=== PATIENT | female | born 1970 | race Caucasian/White ===

== ENCOUNTER 2022-08-19 09:33 | Outpatient (CLI) | payer BC, SELFPAY ==
--- OUTSIDE RECORDS SUMMARY | 2022-08-19 07:49 | XMS_ITS | Encounter Summary ---
:1970 Author Organization [place] Address [address] [place] [address] Care Team Providers Name Role Phone Margaret Osman MD Primary Care Provider [phone] Reason for Referral Diagnostic Imaging Mammo (Routine) - Closed Specialty Diagnoses / Procedures Referred By Contact Refer red To Contact Diagnoses Visit for screening mammogram Lisa Ferrera, Alize MA Screen Bilateral w/Jamie RN RELIEF CHARGE AUDIOMETRIC TECHNICIAN [facility] [address] [place] [address] [address] [place] [address] Referral ID Status Reason Start Date Expiration Date Visits Requ ested Visits Authorized [id number] Closed 11/05/2020 11/05/2021 1 1 STERILIZER Reason for Visit Diagnostic Imaging Mammo (Routine) - Closed Specialty Diagnoses / Procedures Referred By Contact Refer red To Contact Diagnoses Visit for screening mammogram Lisa Ferrera Procedures MA Screen Bilateral w/Jamie RN RELIEF CHARGE AUDIOMETRIC TECHNICIAN [facility] [address] [address] [place] [address] Referral ID Status Reason Start Date Expiration Date Visits Requ ested Visits Authorized [id number] Closed 11/05/2020 11/05/2021 1 1 Encounter Details Date Type Department Care Team Description 11/14/2020 Hospital Encounter [facility] Lisa Ferrera sit for screening [facility] LYDIA Chiang mammogram [address] [facility] [place] [place] [facility] [address] [phone] [address] [place] [address] Social History Tobacco Use Types Packs/Day Years Used Date Never Assessed Sex Assigned at Date Recorded Not on file COVID-19 Exposure Response Date Recorded In the last month, have you been in contact with No / Unsure 11/14/2020 11:41 AM CAN STERILIZER someone who was confirmed or suspected to have Coronavirus / COVID-19? documented as of this encounter Plan of Treatment Not on filedocumented as of this encounter Procedures Procedure Name Priority Date/Time Associated Diagnosis Comme nts MA SCREENING Routine 11/14/2020 12:03 PM Visit for screening R esults for this BILATERAL W/ JAMIE CAN STERILIZER mammogram procedure are in the results section. documented in this encounter Results MA Screen Bilateral w/Jamie (11/14/2020 12:03 PM CAN STERILIZER) Anatomical Region Laterality Modality Breast Bilateral Mammography Specimen (Source) Anatomical Location Collection Method / Collectio n Time Received Time / Laterality Volume Impressions 11/14/2020 2:29 PM CAN STERILIZER IMPRESSION: BI-RADS CATEGORY: 1 - ??NEGATIVE. RECOMMENDED FOLLOW-UP: Annual Mammograph y. The patient will be notified of the resu lts. ALY NEFF MD Narrative 11/14/2020 2:29 PM CAN STERILIZER Examination: Bilateral digital screening mammography with computer aided detection including digital breast tomosynthesis, 11/14/2020 12:03 PM. Comparison: 09/14/2019, 04/21/2014 History: No current breast concerns. Pat ernal aunt with breast cancer. BREAST DENSITY: Heterogeneously dense. COMMENTS: ??No suspicious finding. Procedure Note Aly Neff MD - 11/14/2020 Examination: Bilateral digital screening mammography with computer aided detection including digital breast tomosynthesis, 11/14/2020 12:03 PM. Comparison: 09/14/2019, 04/21/2014 History: No current breast concerns. Pat ernal aunt with breast cancer. BREAST DENSITY: Heterogeneously dense. COMMENTS: No suspicious finding. IMPRESSION: BI-RADS CATEGORY: 1 - NEGATI VE. RECOMMENDED FOLLOW-UP: Annual Mammograph y. The patient will be notified of the resu lts. ALY NEFF MD Lisa Ferrera RN RELIEF CHARGE AUDIOMETRIC TECHNICIAN IMG MAMMOGRAPHY ORDERAB LES documented in this encounter Visit Diagnoses Diagnosis Visit for screening mammogram Other screening mammogram documented in this encounter Care Teams Aboriginal Community Council Member Relationship Specialty Start Date End Date Margaret Osman MD PCP - General Family Practice 08/19/[address] [address] documented as of this encounter
--- OUTSIDE RECORDS SUMMARY | 2022-08-19 07:49 | XMS_ITS | Encounter Summary ---
:1970 Author Organization [place] Address [address] [place] [address] Care Team Providers Name Role Phone Margaret Osman MD Primary Care Provider [phone] Encounter Details Date Type Department Care Team Description 11/14/2020 Travel Social History Tobacco Use Types Packs/Day Years Used Date Never Assessed Sex Assigned at Date Recorded Not on file COVID-19 Exposure Response Date Recorded In the last month, have you been in contact with No / Unsure 11/14/2020 11:41 AM NUCLEAR PLANT TECHNICAL ADVISOR someone who was confirmed or suspected to have Coronavirus / COVID-19? documented as of this encounter Plan of Treatment Not on filedocumented as of this encounter Visit Diagnoses Not on filedocumented in this encounter Care Teams Student Success Counselor Relationship Specialty Start Date End Date Margaret Osman MD PCP - General Family Practice 08/19/[address] [address] documented as of this encounter
--- OUTSIDE RECORDS SUMMARY | 2022-08-19 07:49 | XMS_ITS | Encounter Summary ---
:1970 Author Organization [place] Address [address] [place] [address] Care Team Providers Name Role Phone Margaret Osman MD Primary Care Provider [phone] Encounter Details Date Type Department Care Team Description 11/19/2021 Travel Social History Tobacco Use Types Packs/Day Years Used Date Never Assessed Sex Assigned at Date Recorded Not on file COVID-19 Exposure Response Date Recorded In the last month, have you been in contact with No / Unsure 11/19/2021 8:06 AM DISEASE CONTROL INSPECTOR someone who was confirmed or suspected to have Coronavirus / COVID-19? documented as of this encounter Plan of Treatment Not on filedocumented as of this encounter Visit Diagnoses Not on filedocumented in this encounter Care Teams Electrical Maintenance Supervisor Relationship Specialty Start Date End Date Margaret Osman MD PCP - General Family Practice 08/19/[address] [address] documented as of this encounter
--- OUTSIDE RECORDS SUMMARY | 2022-08-19 07:49 | XMS_ITS | Clinical Summary ---
:1970 Author Organization [place] Address [address] [place] [address] Care Team Providers Name Role Phone Margaret Osman MD Primary Care Provider [phone] Social History Tobacco Use Types Packs/Day Years Used Date Never Assessed Sex Assigned at Date Recorded Not on file Plan of Treatment Health Maintenance Due Date Last Done Comments ADVANCE CARE PLANNING 1970 ANNUAL REVIEW OF HM ORDERS 1970 CT COLONOGRAPHY 1970 FIT-DNA (Cologuard) 1970 FIT 1970 FLEX SIG 1970 HIV SCREENING 1985 HEPATITIS C SCREENING 1988 PAP 1991 LIPID 2015 PHQ-2 (once per calendar 11/16/2021 year) COVID-19 Vaccine (4 - 12/03/2021 10/08/2021, 03/19/2021, Booster for Pfizer series) 02/26/2021 INFLUENZA VACCINE (#1) 2022 08/29/2020, 08/31/2019, 08/05/2017, Additional history exists MAMMO SCREENING 11/19/2022 11/19/2021, 11/14/2020, 09/14/2019, Additional history exists PREVENTIVE CARE VISIT 02/18/2023 02/18/2022, 05/16/2021 DTAP/TDAP/TD IMMUNIZATION 02/22/2029 02/22/2019 (2 - Td or Tdap) COLONOSCOPY 08/01/2031 08/01/2021, 08/01/2021 COLORECTAL CANCER SCREENING 08/01/2031 ZOSTER IMMUNIZATION Completed 08/22/2021, 05/16/2021 HEPATITIS B IMMUNIZATION Aged Out No long er eligible based on patient 's age to complete this topic IPV IMMUNIZATION Aged Out No longer eligi ble based on patient 's age to complete this topic MENINGITIS IMMUNIZATION Aged Out No longe r eligible based on patient 's age to complete this topic Pneumococcal Vaccine: Aged Out No longer eligible Pediatrics (0 to 5 Years) based on patient's age and At-Risk Patients (6 to to co mplete this topic 64 Years) Insurance Payer Benefit Plan / Subscriber ID Effective Dates Phone Addre ss Type Group BCBS BCBS OUT OF [id number] 2016-Present [phone] [address] [address] [place] [address] [phone] (Work) Care Teams Rubber Stamp Assembler Relationship Specialty Start Date End Date Margaret Osman MD PCP - General Family Practice 08/19/[address] [address]
--- OUTSIDE RECORDS SUMMARY | 2022-08-19 07:50 | XMS_ITS | Encounter Summary ---
:1970 Author Organization [place] Address [address] [place] [address] Care Team Providers Name Role Phone Margaret Osman MD Primary Care Provider [phone] Reason for Visit (Routine) - Closed Specialty Diagnoses / Procedures Referred By Contact Refer red To Contact Radiology / Radiology. Diagnoses Previous images at [facility] Procedures MA SCREENING BILATERAL W/ JAMIE [address], [address] [place] [address] Phone: Fax: Referral ID Status Reason Start Date Expiration Date Visits Requ ested Visits Authorized [id number] Closed 08/26/2017 08/26/2018 1 1 Encounter Details Date Type Department Care Team Description 08/28/2017 [facility] MD [facility] mammogram Center [facility] [address], [address] [place] [address] [id number] Social History Tobacco Use Types Packs/Day Years Used Date Never Assessed Sex Assigned at Date Recorded Not on file documented as of this encounter Plan of Treatment Not on filedocumented as of this encounter Procedures Procedure Name Priority Date/Time Associated Diagnosis Comme nts MA SCREENING Routine 08/28/2017 12:47 PM Visit for screening R esults for this BILATERAL W/ JAMIE CDT mammogram procedure are in the results section. documented in this encounter Results MA Screen Bilateral w/Jamie (08/28/2017 12:47 PM CDT) Anatomical Region Laterality Modality Breast Bilateral Mammography Specimen (Source) Anatomical Location Collection Method / Collectio n Time Received Time / Laterality Volume Impressions 08/28/2017 1:39 PM CDT IMPRESSION: BI-RADS CATEGORY: 1 - ??Negative RECOMMENDED FOLLOW-UP: Annual Mammograph y. Exam results letter mailed to patient. MAURICIO KENNEDY MD Narrative 08/28/2017 1:39 PM CDT SCREENING MAMMOGRAM, BILATERAL, DIGITAL w/CAD AND TOMOSYNTHESIS - 08/28/2017 12:47 PM BREAST SYMPTOMS: No current breast compl aints. COMPARISON: ??08/26/16, 03/14/13. BREAST DENSITY: Heterogeneously dense. COMMENTS: No findings of suspicion for m alignancy. Procedure Note Mauricio Kennedy MD - 08/28/2017For matting of this note might be different from the original. SCREENING MAMMOGRAM, BILATERAL, DIGITAL w/CAD AND TOMOSYNTHESIS - 08/28/2017 12:47 PM BREAST SYMPTOMS: No current breast compl aints. COMPARISON: 08/26/16, 03/14/13. BREAST DENSITY: Heterogeneously dense. COMMENTS: No findings of suspicion for m alignancy. IMPRESSION: BI-RADS CATEGORY: 1 - Negati ve RECOMMENDED FOLLOW-UP: Annual Mammograph y. Exam results letter mailed to patient. MAURICIO KENNEDY MD Lisa Ferrera RN IMG MAMMOGRAPHY ORDERABLES documented in this encounter Visit Diagnoses Diagnosis Visit for screening mammogram Other screening mammogram documented in this encounter Care Teams Housekeeper And Laundry Assistant Relationship Specialty Start Date End Date Margaret Osman MD PCP - General Family Practice 08/19/[address] [address] documented as of this encounter
--- OUTSIDE RECORDS SUMMARY | 2022-08-19 07:50 | XMS_ITS | Encounter Summary ---
:1970 Author Organization [place] Address [address] [place] [address] Care Team Providers Name Role Phone Unavailable Primary Care Provider Unavailable Reason for Visit (Routine) - Closed Specialty Diagnoses / Procedures Referred By Contact Refer red To Contact Radiology Diagnoses SCREENING BILATERAL-DIGITAL Procedure Notes: Routine Breast Center Procedures RADIOLOGY [address], [address] [place], [place] [address] Phone: Fax: Referral ID Status Reason Start Date Expiration Date Visits Requ ested Visits Authorized [id number] Closed 03/11/2013 03/11/2014 1 1 Encounter Details Date Type Department Care Team Description 03/14/2013 Hospital Encounter [facility] Alexandra Johns MD [facility] [address] [place] [address], [place] [address] [address] [place] [address] Social History Tobacco Use Types Packs/Day Years Used Date Never Assessed Sex Assigned at Date Recorded Not on file documented as of this encounter Plan of Treatment Not on filedocumented as of this encounter Visit Diagnoses Not on filedocumented in this encounter
--- OUTSIDE RECORDS SUMMARY | 2022-08-19 07:50 | XMS_ITS | Encounter Summary ---
:1970 Author Organization [place] Address [address] [place] [address] Care Team Providers Name Role Phone Unavailable Primary Care Provider Unavailable Encounter Details Date Type Department Care Team Description 11/14/2009 Results Only [facility] Nydia Weaver MD Hospital Results [facility] [address] [place] [address] (Wo rk) Social History Tobacco Use Types Packs/Day Years Used Date Never Assessed Sex Assigned at Date Recorded Not on file documented as of this encounter Plan of Treatment Not on filedocumented as of this encounter Procedures Procedure Name Priority Date/Time Associated Diagnosis Comme nts HC MAMMO SCREEN Routine 11/14/2009 8:06 AM Result s for this BILATATERAL, INCL WORKERS COMPENSATION LEGAL SECRETARY procedure are in CAD WHEN PERF the results section. documented in this encounter Results SCREENING MAMMOGRAPHY DIGITAL (BILAT) (11/14/2009 8:06 AM WORKERS COMPENSATION LEGAL SECRETARY) Specimen (Source) Anatomical Collection Method Collection Time Re ceived Time Location / / Volume Laterality 11/14/2009 8:06 AM WORKERS COMPENSATION LEGAL SECRETARY Impressions RADIOLOGY RESULTS - 11/15/2009 9:[address] SCREENING MAMMOGRAM BILATERAL, DIGITAL w /CAD - November 14, 2009 BREAST SYMPTOMS: No current breast compl aints. COMPARISON: Routine. Baseline. ?? PARENCHYMAL PATTERN: Scattered fibroglan dular elements. COMMENTS: No findings of suspicion for m alignancy. IMPRESSION: BI-RADS 1, NEGATIVE. RECOMMENDATION: Annual screening mammogr aphy. Nydia Weaver MD SPECIAL IMAGING STUDIES Performing Organization Address City/State/ZIP Code Phon e Number RADIOLOGY RESULTS documented in this encounter Visit Diagnoses Not on filedocumented in this encounter
--- OUTSIDE RECORDS SUMMARY | 2022-08-19 07:50 | XMS_ITS | Encounter Summary ---
:1970 Author Organization [place] Address [address] [place] [address] Care Team Providers Name Role Phone [facility] Primary Care Provider [phone] Reason for Visit (Routine) - Closed Specialty Diagnoses / Procedures Referred By Contact Refer red To Contact Radiology / Radiology. Diagnoses sb pt [facility] Procedures MA SCREENING DIGITAL BILATERAL [address], [address] [place] [address] Phone: Fax: Referral ID Status Reason Start Date Expiration Date Visits Requ ested Visits Authorized [id number] Closed 08/21/2016 08/21/2017 1 1 Encounter Details Date Type Department Care Team Description 08/26/2016 Hospital Encounter [facility] Nydia Weaver for screening Dwight Sanchez MD mammogram Center [facility] [address] [address] [place] [address] Social History Tobacco Use Types Packs/Day Years Used Date Never Assessed Sex Assigned at Date Recorded Not on file documented as of this encounter Plan of Treatment Not on filedocumented as of this encounter Procedures Procedure Name Priority Date/Time Associated Diagnosis Comme nts MA SCREENING Routine 08/26/2016 3:23 PM Visit for screening Re sults for this DIGITAL BILATERAL CDT mammogram procedure are in the results section. documented in this encounter Results MA Screening Digital Bilateral (08/26/2016 3:23 PM CDT) Anatomical Region Laterality Modality Breast Bilateral Mammography Specimen (Source) Anatomical Location Collection Method / Collectio n Time Received Time / Laterality Volume Impressions 08/26/2016 3:50 PM CDT IMPRESSION: BI-RADS CATEGORY: 1 - ??NEGATIVE. RECOMMENDED FOLLOW-UP: Annual Mammograph y Exam results letter mailed to patient. DILLAN AYALA MD Narrative 08/26/2016 3:50 PM CDT SCREENING MAMMOGRAM, BILATERAL, DIGITAL w/CAD - 08/26/2016 3:23 PM. BREAST SYMPTOMS: No current breast compl aints. COMPARISON: ??07/24/2015, 11/18/2010. BREAST DENSITY: Heterogeneously dense. COMMENTS: No findings of suspicion for m alignancy. Procedure Note Dillan Ayala MD - 6 SCREENING MAMMOGRAM, BILATERAL, DIGITAL w/CAD - 08/26/2016 3:23 PM. BREAST SYMPTOMS: No current breast compl aints. COMPARISON: 07/24/2015, 11/18/2010. BREAST DENSITY: Heterogeneously dense. COMMENTS: No findings of suspicion for m alignancy. IMPRESSION: BI-RADS CATEGORY: 1 - NEGATI VE. RECOMMENDED FOLLOW-UP: Annual Mammograph y Exam results letter mailed to patient. DILLAN AYALA MD Nydia Weaver MD IMG MAMMOGRAPHY ORDERABLES documented in this encounter Visit Diagnoses Diagnosis Visit for screening mammogram Other screening mammogram documented in this encounter Care Teams Crocheter Relationship Specialty Start Date End Date [facility], [facility] PCP - General 07/06/15 08/18/[address] [place] [address] documented as of this encounter
--- OUTSIDE RECORDS SUMMARY | 2022-08-19 07:50 | XMS_ITS | Encounter Summary ---
:1970 Author Organization [place] Address [address] [place] [address] Care Team Providers Name Role Phone Margaret Osman MD Primary Care Provider [phone] Reason for Referral Diagnostic Imaging Ultrasound - Closed Specialty Diagnoses / Procedures Referred By Contact Refer red To Contact Radiology. Diagnoses Abnormal mammogram Lisa Ferrera, Rh Ultrasound Breast Procedures US Breast Right CORE DRILLER HELPER NUCLEAR POWER REACTOR OPERATOR [address], [facility] [address] [place] [address] [place] [address] Referral ID Status Reason Start Date Expiration Date Visits Requ ested Visits Authorized [id number] Closed 09/01/2018 09/01/2019 1 1 Electronically signed by Lisa Ferrera CORE DRILLER HELPER NUCLEAR POWER REACTOR OPERATOR at 09/06/2018 8:16 AM CDT Reason for Visit Diagnostic Imaging Ultrasound - Closed Specialty Diagnoses / Procedures Referred By Contact Refer red To Contact Radiology. Diagnoses Abnormal mammogram Lisa Ferrera, Rh Ultrasound Breast Procedures US Breast Right CORE DRILLER HELPER NUCLEAR POWER REACTOR OPERATOR [address], [facility] [address] [place] [address] [place] [address] Referral ID Status Reason Start Date Expiration Date Visits Requ ested Visits Authorized [id number] Closed 09/01/2018 09/01/2019 1 1 Encounter Details Date Type Department Care Team Description 09/06/2018 Hospital Encounter [facility] Iban Lisa normal mammogram [facility] LYDIA Chiang [address] [facility] [place] [facility] [address] [phone] [address] [place] [address] Social History Tobacco Use Types Packs/Day Years Used Date Never Assessed Sex Assigned at Date Recorded Not on file documented as of this encounter Plan of Treatment Not on filedocumented as of this encounter Procedures Procedure Name Priority Date/Time Associated Diagnosis Comme nts US BREAST RIGHT Routine 09/06/2018 8:58 AM Abnormal mammogram Results for this LIMITED 1-3 CDT procedure are i n QUADRANTS the results section. documented in this encounter Results US Breast Right (09/06/2018 8:58 AM CDT) Anatomical Region Laterality Modality Breast Right Ultrasound Specimen (Source) Anatomical Location Collection Method / Collectio n Time Received Time / Laterality Volume Impressions 09/06/2018 8:59 AM CDT IMPRESSION: BI-RADS CATEGORY: 2 - Benign Finding(s). RECOMMENDED FOLLOW-UP: Annual Mammograph y. The patient was given the results of the examination. ALY NEFF MD Narrative 09/06/2018 8:59 AM CDT Examination: Right breast digital diagnostic mammography and digital breast tomosynthesis with computer aided detection, and focused ultrasound of the RIGHT breast, 09/06/20 18. Comparison: 08/31/2018, 08/28/2017, 08/16 and 07/24/2015. History: Screening call back for density in the RIGHT upper outer breast. BREAST DENSITY: Heterogeneously dense Findings: Digital breast tomosynthesis a nd focused ultrasound of the RIGHT upper outer quadrant were used to further evaluate density. Scattered benign cysts are seen. No conc erning findings. Lisa Ferrera APRN NUCLEAR POWER REACTOR OPERATOR IMG US ORDERABLES documented in this encounter Visit Diagnoses Diagnosis Abnormal mammogram Abnormal mammogram, unspecified documented in this encounter Care Teams Contract Coordinator Relationship Specialty Start Date End Date Margaret Osman MD PCP - General Family Practice 08/19/[address] [address] documented as of this encounter
--- OUTSIDE RECORDS SUMMARY | 2022-08-19 07:50 | XMS_ITS | Encounter Summary ---
:1970 Author Organization [place] Address [address] [place] [address] Care Team Providers Name Role Phone Clinic, [facility] Primary Care Provider [phone] Reason for Visit (Routine) - Closed Specialty Diagnoses / Procedures Referred By Contact Refer red To Contact Radiology / Radiology. Diagnoses [facility] 04-21-2014 na, ni, sb pt Rh Breast Center Procedures RI SCREENING DIGITAL BILATERAL [address] [facility], [address] [place] [address] Phone: Fax: Referral ID Status Reason Start Date Expiration Date Visits Requ ested Visits Authorized [id number] Closed 07/05/2015 07/04/2016 1 1 Encounter Details Date Type Department Care Team Description 07/24/2015 Hospital Encounter [facility] Nydia Weaver ther screening Dwight Sanchez MD mammogram Center [facility] OBGYN [address] [facility], [address] [phone] [place], [place] [address] Social History Tobacco Use Types Packs/Day Years Used Date Never Assessed Sex Assigned at Date Recorded Not on file documented as of this encounter Plan of Treatment Not on filedocumented as of this encounter Procedures Procedure Name Priority Date/Time Associated Diagnosis Comme nts MA SCREENING Routine 07/24/2015 11:19 AM Other screening Resul ts for this DIGITAL BILATERAL CDT mammogram procedure are in the results section. documented in this encounter Results MA Screening Digital Bilateral (07/24/2015 11:19 AM CDT) Anatomical Region Laterality Modality Breast Bilateral Mammography Specimen (Source) Anatomical Location Collection Method / Collectio n Time Received Time / Laterality Volume Impressions 07/24/2015 3:59 PM CDT IMPRESSION: BI-RADS CATEGORY: 1 - ??NEGATIVE. RECOMMENDED FOLLOW-UP: Annual Mammograph y Exam results letter mailed to patient. DILLAN AYALA MD Narrative 07/24/2015 3:59 PM CDT SCREENING MAMMOGRAM, BILATERAL, DIGITAL w/CAD - 07/24/2015 11:19 AM. BREAST SYMPTOMS: No current breast compl aints. COMPARISON: ??04/21/2014, 11/18/2010. BREAST DENSITY: Heterogeneously dense. COMMENTS: No findings of suspicion for m alignancy. ? Procedure Note Dillan Ayala MD - 5 SCREENING MAMMOGRAM, BILATERAL, DIGITAL w/CAD - 07/24/2015 11:19 AM. BREAST SYMPTOMS: No current breast compl aints. COMPARISON: 04/21/2014, 11/18/2010. BREAST DENSITY: Heterogeneously dense. COMMENTS: No findings of suspicion for m alignancy. IMPRESSION IMPRESSION: BI-RADS CATEGORY: 1 - NEGATI VE. RECOMMENDED FOLLOW-UP: Annual Mammograph y Exam results letter mailed to patient. DILLAN AYALA MD Nydia Weaver MD IMG MAMMOGRAPHY ORDERABLES documented in this encounter Visit Diagnoses Diagnosis Other screening mammogram documented in this encounter Care Teams Statistical Machine Mechanic Relationship Specialty Start Date End Date [facility], [facility] PCP - General 07/06/15 08/18/[address] [place] [address] documented as of this encounter
--- OUTSIDE RECORDS SUMMARY | 2022-08-19 07:50 | XMS_ITS | Encounter Summary ---
:1970 Author Organization [place] Address [address] [place] [address] Care Team Providers Name Role Phone Unavailable Primary Care Provider Unavailable Reason for Visit (Routine) - Closed Specialty Diagnoses / Procedures Referred By Contact Refer red To Contact Radiology / Radiology. Diagnoses [facility] Procedures MA SCREENING DIGITAL BILATERAL [address], [address] [place] [address] Phone: Fax: Referral ID Status Reason Start Date Expiration Date Visits Requ ested Visits Authorized [id number] Closed 04/12/2014 10/09/2014 1 1 Encounter Details Date Type Department Care Team Description 04/21/2014 Hospital Encounter [facility] Lsia Ferrera [facility] Breast [place] LYDIA Chiang ACOUSTIC ENGINEER [address] [facility] [address] [facility] [place], [place] [address] [address] [facility] [address] [place], [place] [address] Social History Tobacco Use Types Packs/Day Years Used Date Never Assessed Sex Assigned at Date Recorded Not on file documented as of this encounter Plan of Treatment Not on filedocumented as of this encounter Procedures Procedure Name Priority Date/Time Associated Diagnosis Comme nts MA SCREENING Routine 04/21/2014 12:17 PM Breast screening Resu lts for this DIGITAL BILATERAL CDT procedure are in the results section. documented in this encounter Results MA Screening Digital Bilateral (04/21/2014 12:17 PM CDT) Anatomical Region Laterality Modality Breast Bilateral Mammography Specimen (Source) Anatomical Location Collection Method / Collectio n Time Received Time / Laterality Volume Impressions 04/21/2014 2:19 PM CDT IMPRESSION: BI-RADS CATEGORY: 1 - ??NEGATIVE RECOMMENDED FOLLOW-UP: Annual Mammograph y KAIT WILKINSON MD Narrative 04/21/2014 2:19 PM CDT SCREENING MAMMOGRAM, BILATERAL, DIGITAL w/CAD, 04/21/2014 2:19 PM BREAST DENSITY: Heterogeneously dense ?? CLINICAL INFORMATION: ??Routine,Breast s creening, unspecified, 03/14/2013, 11/14/2009 FINDINGS: Negative. Screening exam in on e year recommended. Procedure Note Kait Wilkinson MD - 04/21/2014Formatt ing of this note might be different from the original. SCREENING MAMMOGRAM, BILATERAL, DIGITAL w/CAD, 04/21/2014 2:19 PM BREAST DENSITY: Heterogeneously dense CLINICAL INFORMATION: Routine,Breast scr eening, unspecified, 03/14/2013, 11/14/2009 FINDINGS: Negative. Screening exam in on e year recommended. IMPRESSION IMPRESSION: BI-RADS CATEGORY: 1 - NEGATI VE RECOMMENDED FOLLOW-UP: Annual Mammograph y KAIT WILKINSON MD Lisa Ferrera APRN ACOUSTIC ENGINEER IMG MAMMOGRAPHY ORDERAB LES documented in this encounter Visit Diagnoses Diagnosis Breast screening Breast screening, unspecified documented in this encounter
--- OUTSIDE RECORDS SUMMARY | 2022-08-19 07:50 | XMS_ITS | Encounter Summary ---
:1970 Author Organization [place] Address [address] [place] [address] Care Team Providers Name Role Phone Margaret Osman MD Primary Care Provider [phone] Reason for Referral Diagnostic Imaging Mammo - Closed Specialty Diagnoses / Procedures Referred By Contact Refer red To Contact Radiology. Diagnoses Breast cancer screening Lsia Ferrera, Breast Center Procedures MA Screening Digital Bilateral MA Screen Bilateral w/Manuel GANG PLANK WORKMAN OFFICE MACHINE SERVICER [address] [facility] [place] [facility] [address] [place] [address] [address] [place], [place] [phone] Fax: Referral ID Status Reason Start Date Expiration Date Visits Requ ested Visits Authorized [id number] Closed 08/20/2018 08/20/2019 1 1 Reason for Visit Diagnostic Imaging Mammo - Closed Specialty Diagnoses / Procedures Referred By Contact Refer red To Contact Radiology. Diagnoses Breast cancer screening Lisa Ferrera, Breast Center Procedures MA Screening Digital Bilateral MA Screen Bilateral w/Manuel GANG PLANK WORKMAN OFFICE MACHINE SERVICER [address] [facility] [place] [address] [address] [place], [place] [phone] Fax: Referral ID Status Reason Start Date Expiration Date Visits Requ ested Visits Authorized [id number] Closed 08/20/2018 08/20/2019 1 1 Encounter Details Date Type Department Care Team Description 08/31/2018 [facility] Breast [place] LYDIA Chiang screening [address] [facility] [place], [place] [facility] [address] [phone] [address] [place], [place] [phone] Social History Tobacco Use Types Packs/Day Years Used Date Never Assessed Sex Assigned at Date Recorded Not on file documented as of this encounter Plan of Treatment Not on filedocumented as of this encounter Procedures Procedure Name Priority Date/Time Associated Diagnosis Comme nts MA SCREENING Routine 08/31/2018 3:17 PM Breast cancer Results for this DIGITAL BILATERAL CDT screening procedure are in the results section. documented in this encounter Results MA Screening Digital Bilateral (08/31/2018 3:17 PM CDT) Anatomical Region Laterality Modality Breast Bilateral Mammography Specimen (Source) Anatomical Location Collection Method / Collectio n Time Received Time / Laterality Volume Impressions 08/31/2018 3:36 PM CDT IMPRESSION: BI-RADS CATEGORY: 0 - Incomplete - Need Additional Imaging Evaluation and/or Prior Mammograms for C omparison. RECOMMENDED FOLLOW-UP: Diagnostic and ul trasound. KAIT DE MD Narrative 08/31/2018 3:36 PM CDT SCREENING MAMMOGRAM, BILATERAL, DIGITAL w/CAD, 08/31/2018 3:35 PM BREAST DENSITY: Heterogeneously dense. CLINICAL INFORMATION: Breast screening. ??; Breast cancer screening, 08/28/2017, 11/21/2011 FINDINGS: Density right upper outer [address] Lisa Ferrera GANG PLANK WORKMAN OFFICE MACHINE SERVICER IMG MAMMOGRAPHY ORDERAB LES documented in this encounter Visit Diagnoses Diagnosis Breast cancer screening Breast screening, unspecified documented in this encounter Care Teams Fork Assembler Relationship Specialty Start Date End Date Margaret Osman MD PCP - General Family Practice 08/19/[address] [address] documented as of this encounter
--- OUTSIDE RECORDS SUMMARY | 2022-08-19 07:50 | XMS_ITS | Encounter Summary ---
:1970 Author Organization [place] Address [address] [place] [address] Care Team Providers Name Role Phone Unavailable Primary Care Provider Unavailable Encounter Details Date Type Department Care Team Description 11/18/2010 Results Only [facility] Thaddeus Calr MD Hospital Results [facility] OBGYN CONSULTS [address] [place], [place] [phone] (Wo rk) Social History Tobacco Use Types Packs/Day Years Used Date Never Assessed Sex Assigned at Date Recorded Not on file documented as of this encounter Plan of Treatment Not on filedocumented as of this encounter Procedures Procedure Name Priority Date/Time Associated Diagnosis Comme nts MA SCREENING Routine 11/18/2010 8:54 AM Results f or this DIGITAL BILATERAL SCHEDULING ASSISTANT procedure are in the results section. documented in this encounter Results Mammo Screening digital (bilat) (11/18/2010 8:54 AM SCHEDULING ASSISTANT) Specimen (Source) Anatomical Collection Method Collection Time Re ceived Time Location / / Volume Laterality 11/18/2010 8:54 AM SCHEDULING ASSISTANT Impressions RADIOLOGY RESULTS - 11/18/2010 9:[address] SCREENING MAMMOGRAM, BILATERAL, DIGITAL w/CAD BREAST SYMPTOMS/COMPARISON: 11/14/2009 BREAST PARENCHYMAL PATTERN: Heterogeneou sly dense FINDINGS: Negative. IMPRESSION: BI-RADS 1, NEGATIVE. Thaddeus Carl MD IMG MAMMOGRAPHY ORDERABLES Performing Organization Address City/State/ZIP Code Phon e Number RADIOLOGY RESULTS documented in this encounter Visit Diagnoses Not on filedocumented in this encounter
--- OUTSIDE RECORDS SUMMARY | 2022-08-19 07:50 | XMS_ITS ---
:1970 Author Care Team Providers Name Role Phone Rebecca Barone Primary Care Provider Unavailable Allergies Code Code System Name Reaction Severity Status Onset Penicillins ? ? Active ? Medications Name Status Start Date Stop Date ? ? clindamycin 1 % topical gel Active ? Not available APPLY TO AFFECTED AREA TWICE A DAY Mirena 20 mcg/24 hours (8 yrs) 52 mg intrauterine device Active ? Not available Take by intrauterine route. spironolactone 100 mg tablet Active ? Not available TAKE 1 TABLET BY MOUTH EVERY DAY Problems None recorded. Procedures Date Name Performed by ? ? Insert Intrauterine Device Information n ot available Notes: *Notes: *08-09-12 Mirena * removal and reinsertion ? Laparoscopic Myomectomy Information not available Notes: *Surgery Date: 1 *Notes: hysteroscopic resection of 2cm anterior myoma ? Ligation of Bilateral Fallopian Tubes In formation not available Notes: *Surgery Date: 07/2003 *Notes: Dr Roche ? Loop Electrosurgical Excision Procedure Information not available Notes: *Surgery Date: 11/06/97 *Notes: Negative ? Tooth Extraction Information not elías wayne Notes: *Surgery Date: 10/2007 Results Lab Results Date Name Specimen Result Interpretation Description Value Range Status Address ? ? Hemoglobin ? Fingerstick 14.3 12.0-15.0 ? [id number]: (Hb), Hemoglobin g/dL g/dL [address] [facility] [address], [address] [place] [address] Blood Past Encounters 02/28/2022 Fibrocystic [facility] [address] [facility] [address], [address] [place] [phone], Ph. 02/18/2022 Gynecologic Examination [facility] [address] [facility] [address], [address], [place] [address], Ph. Social History Tobacco Smoking Status Former Smoker (1/2 pack per Notes: Age Start/Stop: day) Vaccine List None recorded. Plan of Care Reminders Provider Appointments None recorded. ? ? Lab None recorded. ? ? Referral None recorded. ? ? Procedures None recorded. ? ? Surgeries None recorded. ? ? Imaging None recorded. ? ? Vitals 02/28/2022 03:30PM G_OFFICE VISIT Height Weight BMI Blood Pressure 5 ft 9.5 in 118/76 mm[Hg] 02/18/2022 03:45PM G_ANNUAL EXAM Height Weight BMI Blood Pressure 5 ft 9.5 in 211.4 lbs 30.8 kg/m2 118/78 mm[Hg] 01/17/2021 03:45PM G_ANNUAL EXAM Height Weight BMI Blood Pressure 5 ft 9.5 in 205.8 lbs 30 kg/m2 114/72 mm[Hg] 11/04/2019 Height Weight BMI Blood Pressure 5 ft 9.96 in 211 lbs 30.28 kg/m2 108/76 mm[Hg] 09/29/2018 Height Weight BMI Blood Pressure 5 ft 9.96 in 194 lbs 27.84 kg/m2 120/68 mm[Hg] 09/25/2017 Height Weight BMI Blood Pressure 5 ft 9.96 in 192.5 lbs 27.62 kg/m2 110/70 mm[Hg] 08/28/2017 Height Weight BMI Blood Pressure 5 ft 9.96 in 192.38 lbs 27.60 kg/m2 106/68 mm[Hg] 08/26/2016 Height Weight BMI Blood Pressure 5 ft 9.96 in 186 lbs 26.69 kg/m2 124/64 mm[Hg] 07/24/2015 Height Weight BMI Blood Pressure 5 ft 9.96 in 190 lbs 27.26 kg/m2 108/70 mm[Hg] 04/21/2014 Height Weight BMI Blood Pressure 5 ft 9.96 in 194 lbs 27.84 kg/m2 112/70 mm[Hg] 01/21/2013 Height Weight BMI Blood Pressure 5 ft 9.96 in 178 lbs 25.54 kg/m2 100/68 mm[Hg] 12/30/2012 Height Weight BMI Blood Pressure 5 ft 9.96 in 181 lbs 25.97 kg/m2 128/80 mm[Hg] 09/06/2012 Height Weight BMI Blood Pressure 5 ft 9.96 in 167 lbs 23.96 kg/m2 120/70 mm[Hg] 08/09/2012 Height Weight BMI Blood Pressure 5 ft 9.96 in 167 lbs 23.96 kg/m2 110/76 mm[Hg] 07/20/2012 Height Weight BMI Blood Pressure 5 ft 9.96 in 165 lbs 23.67 kg/m2 96/64 mm[Hg] 06/24/2012 Height Weight BMI Blood Pressure 5 ft 9.96 in 165 lbs 23.67 kg/m2 110/72 mm[Hg] 01/19/2012 Height Weight BMI Blood Pressure 5 ft 9.96 in 172 lbs 24.68 kg/m2 114/78 mm[Hg] 01/15/2011 Height Weight BMI Blood Pressure 5 ft 9.96 in 191 lbs 27.41 kg/m2 108/66 mm[Hg] 01/11/2010 Height Weight BMI Blood Pressure 5 ft 9.96 in 203 lbs 29.13 kg/m2 112/70 mm[Hg] 12/07/2008 Height Weight BMI Blood Pressure 5 ft 9 in 194 lbs 28.65 kg/m2 120/80 mm[Hg]
--- OUTSIDE RECORDS SUMMARY | 2022-08-19 07:50 | XMS_ITS | Encounter Summary ---
:1970 Author Organization [place] Address [address] [place] [address] Care Team Providers Name Role Phone Margaret Osman MD Primary Care Provider [phone] Reason for Referral Diagnostic Imaging Mammo (Routine) - Closed Specialty Diagnoses / Procedures Referred By Contact Refer red To Contact Diagnoses Visit for screening mammogram Lisa Ferrera Procedures MA Screen Bilateral w/Manuel ROD STRAIGHTENER PC TECH [facility] [place] [facility] [address] [place] [address] [address] [place] [address] Referral ID Status Reason Start Date Expiration Date Visits Requ ested Visits Authorized [id number] Closed 09/02/2019 09/01/2020 1 1 Reason for Visit Diagnostic Imaging Mammo (Routine) - Closed Specialty Diagnoses / Procedures Referred By Contact Refer red To Contact Diagnoses Visit for screening mammogram Lisa Ferrera Procedures MA Screen Bilateral w/Manuel ROD STRAIGHTENER PC TECH [facility] [place] [facility] [address] [address] [place] [address] Referral ID Status Reason Start Date Expiration Date Visits Requ ested Visits Authorized [id number] Closed 09/02/2019 09/01/2020 1 1 Encounter Details Date Type Department Care Team Description 09/14/2019 Hospital Encounter [facility] Lisa Ferrera sit for screening [facility] LYDIA Chiang mammogram [address] [facility] [place], [place] [facility] [address] [phone] [address] [place] [address] Social History Tobacco Use Types Packs/Day Years Used Date Never Assessed Sex Assigned at Date Recorded Not on file documented as of this encounter Plan of Treatment Not on filedocumented as of this encounter Procedures Procedure Name Priority Date/Time Associated Diagnosis Comme nts MA SCREENING Routine 09/14/2019 8:34 AM Visit for screening Re sults for this BILATERAL W/ MANUEL CDT mammogram procedure are in the results section. documented in this encounter Results MA Screen Bilateral w/Manuel (09/14/2019 8:34 AM CDT) Anatomical Region Laterality Modality Breast Bilateral Mammography Specimen (Source) Anatomical Location Collection Method / Collectio n Time Received Time / Laterality Volume Impressions 09/14/2019 9:13 AM CDT IMPRESSION: BI-RADS CATEGORY: 1 - ??Negative. RECOMMENDED FOLLOW-UP: Annual Mammograph y. MAURI WILKINSON MD Narrative 09/14/2019 9:13 AM CDT SCREENING MAMMOGRAM, BILATERAL, DIGITAL w/CAD and TOMOSYNTHESIS, 09/14/2019 9:11 AM BREAST DENSITY: Heterogeneously dense. CLINICAL INFORMATION: Breast screening. ??Visit for screening mammogram, 08/31/2018, 03/14/2013 FINDINGS: Negative. Stable exam. Screeni ng exam in one year recommended. Procedure Note Mauri Wilkinson MD - 09/14/2019Formatt ing of this note might be different from the original. SCREENING MAMMOGRAM, BILATERAL, DIGITAL w/CAD and TOMOSYNTHESIS, 09/14/2019 9:11 AM BREAST DENSITY: Heterogeneously dense. CLINICAL INFORMATION: Breast screening. Visit for screening mammogram, 08/31/2018, 03/14/2013 FINDINGS: Negative. Stable exam. Screeni ng exam in one year recommended. IMPRESSION: BI-RADS CATEGORY: 1 - Negati ve. RECOMMENDED FOLLOW-UP: Annual Mammograph yPatience WILKINSON MD Lisa Ferrera ROD STRAIGHTENER PC TECH IMG MAMMOGRAPHY ORDERAB LES documented in this encounter Visit Diagnoses Diagnosis Visit for screening mammogram Other screening mammogram documented in this encounter Care Teams Pocket Grinder Operator Relationship Specialty Start Date End Date Margaret Osman MD PCP - General Family Practice 08/19/[address] [address] documented as of this encounter
[2022-08-19 10:57] LABS: Albumin* 4.5 g/dL (3.3-5.0); Chloride* 103 mmol/L (96-114)
[2022-08-19 10:58] LABS: Sodium* 138 mmol/L (135-149)
[2022-08-19 11:00] LABS: Carbon Dioxide* 26 mmol/L (20-32); Cholesterol* 203 mg/dL (90-199)
[2022-08-19 11:01] LABS: Alanine Aminotransferase* 30 U/L (4-35); Alkaline Phosphatase* 104 U/L (40-150); Aspartate Amino Transferase* 30 U/L (12-35); Bilirubin Total* 0.9 mg/dL (0.1-1.5); Blood Urea Nitrogen* 13 mg/dL (7-30); Calcium* 9.3 mg/dL (8.4-10.6); Creatinine* 0.6 mg/dL (0.5-1.5); Estimated Glomerular Filt Rate 108 ml/min; Glucose* 105 mg/dL (60-115); HDL Cholesterol* 36 mg/dL (>=50); LDL Cholesterol Calculated 87 mg/dL (<100); Total Protein* 7.4 g/dL (6.0-8.3); Triglycerides* 398 mg/dL (40-149)
== END 2022-08-19 09:34 | disposition home or self-care (01) ==
PROVIDERS: PCP Family Medicine; Visit Provider Family Medicine
DX: Z01.419 Encounter for gynecological examination (general) (routine) without abnormal findings (principal); E78.5 Hyperlipidemia, unspecified; E66.9 Obesity, unspecified
CPT/HCPCS: 80053; 80061

== ENCOUNTER 2023-09-03 07:29 | Outpatient (CLI) | payer BC, SELFPAY | END 2023-09-03 07:30 | disposition home or self-care (01) | PROVIDERS: PCP Family Medicine; Referring Provider Family Medicine; Visit Provider Family Medicine | DX: Z79.899 Other long term (current) drug therapy (principal); R73.9 Hyperglycemia, unspecified; E78.5 Hyperlipidemia, unspecified | CPT/HCPCS: 80053; 80061 ==

== ENCOUNTER 2024-10-07 07:41 | Outpatient (CLI) | payer BC, SELFPAY ==
--- OUTSIDE RECORDS SUMMARY | 2024-10-09 14:21 | XMS_ITS | Referral Summary ---
Author Organization [place] Address [address] [place] [id number] Care Team Providers Care Apparel Designer Name Role Phone Margaret Osman MD Primary Care Provider + Social History Tobacco Use Types Packs/Day Years Used Date Smoking Tobacco: Never Assessed Adolescent Education Answer Date Record ed Getting School Help Needed Not on file 08/16 Comments Unknown Sex and Gender Information Value Date Recorded Sex Assigned at Not on file Legal Sex Female 3:29 AM ARTIFICIAL FLOWERS STARCHER Gender Identity Not on file Sexual Orientation Not on file Plan of Treatment Not on file Procedures Procedure Name Priority Date/Time Associated Diagnosis Comments MA SCREENING BILATERAL W/ MANUEL Routine 01/25/2024 1:11 PM CDT Visit for screening mammogram GYNECOLOGIC CYTOLOGY Routine 02/20/2023 2:19 PM CDT Encounter for gynecological examination (general) (routine) without abnormal findings HPV HIGH RISK TYPES DNA CERVICAL Routine 02/20/2023 2:19 PM CDT Encounter for gynecological examination (general) (routine) without abnormal findings from Last 3 Months or Most Recently Relevant to Health Maintenance Results * MA Screening Bilateral w/ Manuel (01/25/2024 1:11 PM CDT) Anatomical Region Laterality Modality Breast Bilateral Mammography Impressions 01/25/2024 3:10 PM CDT IMPRESSION: ACR BI-RADS Category 1: Negative BREAST CANCER SCREENING RECOMMENDATION: Routine yearly mammography beginning at age 40 or as discussed with your provider. The results and recommendations of this examination will be communicated to the patient. Mauricio Kennedy MD Narrative 01/25/2024 3:10 PM CDT BILATERAL FULL FIELD DIGITAL SCREENING MAMMOGRAM WITH TOMOSYNTHESIS Performed on: 01/25/24 Compared to: 01/22/2023 and 11/14/2020 Technique: This study was evaluated with the assistance of Computer-Aided Detection. Breast Tomosynthesis was used in interpretation. Findings: The breasts are heterogeneously dense, which may obscure small masses. There is no radiographic evidence of malignancy. us Margaret Osman MD IMG MAMMOGRAPHY ORDERABL ES Final Result * Gynecologic Cytology (PAP) (02/20/2023 2:19 PM CDT) Interpretation Negative for Intraepithelial Lesion or Malignancy (NILM) 02/25/2023 8:23 AM CDT [facility] Comment Papanicolaou Test Limitations: Cervical cytology is a screening test with limited sensitivity, and regular screening is critical for cancer prevention. Pap tests are primarily effective for the diagnosis/prevent ion of squamous cell carcinoma, not adenocarcinoma or other cancers. 02/25/2023 8:23 AM CDT [facility] Specimen Adequacy Satisfactory for evaluation, endocervical/tang sformation zone component absent 02/25/2023 8:23 AM CDT [facility] Clinical Information none 02/25/2023 8:23 AM CDT [facility] LMP/Menopause Date N/A 02/25/2023 8:23 AM CDT [facility] Reflex Testing Yes regardless of result 02/25/2023 8:23 AM CDT [facility] Previous Abnormal? No 02/25/2023 8:23 AM CDT [facility] Previous Abnormal Diagnosis Negative/Neg HPV 02/25/2023 8:23 AM CDT [facility] Performing Labs The technical component of this testing was completed at [facility] 02/25/2023 8:23 AM CDT [facility] Brushing ENDOCERVICAL STRUCTURE / Unknown Non-blood Collection / Unknown 02/20/2023 2:19 PM CDT 02/20/2023 9:08 PM CDT us Lisa Ferrera WAYBILL CLERK PRINCIPAL ADMINISTRATIVE CLERK LAB - BEAKER AP F inal Result [facility] Specialty Lab [address], [address] [address], [facility] [phone] * HPV High Risk Types DNA Cervical (02/20/2023 2:19 PM CDT) Other HR HPV Negative Negative 02/26/2023 1:27 PM CDT [facility] HPV16 DNA Negative Negative 02/26/2023 1:27 PM CDT [facility] HPV18 DNA Negative Negative 02/26/2023 1:27 PM CDT [facility] FINAL DIAGNOSIS This patient's sample is negative for HPV DNA. This test was developed and its performance characteristics determined by the [facility], [facility]. It has not been cleared or approved by the FDA. The laboratory is regulated under CLIA as qualified to perform high-complexity testing. This test is used for clinical purposes. It should not be regarded as investigational or for research. METHODOLOGY: The Kayla Sharri 4800 system uses automated extraction, simultaneous amplification of HPV (L1 region) and beta-globin, followed by real time detection of fluorescent labeled HPV and beta globin using specific oligonucleotide probes. The test specifically identifies types HPV 16 DNA and HPV 18 DNA while concurrently detecting the rest of the high risk types (31, 33, 35, 39, 45, 51, 52, 56, 58, 59, 66 or 68). COMMENTS: This test is not intended for use as a screening device for woman under age 30 with normal cervical cytology. Results should be correlated with cytologic and histologic findings. Close clinical followup is recommended. 02/26/2023 1:27 PM CDT [facility] Brushing CERVIX UTERI STRUCTURE / Unknown Non-blood Collection / Unknown 02/20/2023 2:19 PM CDT 02/26/2023 7:26 AM CDT us Lisa Ferrera APRN PRINCIPAL ADMINISTRATIVE CLERK LAB - BLOOD ORDER RENUKA Final Result [facility] [address] [facility] [address], [address] [place] [address], [facility] [phone] from Last 3 Months or Most Recently Relevant to Health Maintenance Insurance BCBS OUT OF STATE BCBS OUT OF STATE Care Teams Apparel Designer Relationship Specialty Start Date End Date Margaret Osman MD [facility] [address] [place] [address] PCP - General Family Practice 08/19/17
--- OUTSIDE RECORDS SUMMARY | 2024-10-09 14:21 | XMS_ITS | Clinical Summary ---
Author Organization [place] Address [address] [place] [address] Care Team Providers Care Graphics Specialist Name Role Phone Margaret Osman MD Primary Care Provider + Family History Medical History Relation Comments Breast Cancer Paternal Aunt 1 Ovarian Cancer Paternal Aunt 2 Relation Status Comments Paternal Aunt 1 Paternal Aunt 2 Alive Social History Tobacco Use Types Packs/Day Years Used Date Smoking Tobacco: Never Assessed Adolescent Education Answer Date Record ed Getting School Help Needed Not on file 08/16 Comments Unknown Sex and Gender Information Value Date Recorded Sex Assigned at Not on file Legal Sex Female 3:29 AM TOWING PILOT Gender Identity Not on file Sexual Orientation Not on file Plan of Treatment Health Maintenance Due Date Last Done Comments ADVANCE CARE PLANNING 1970 ANNUAL REVIEW OF HM ORDERS 1970 CT COLONOGRAPHY 1970 FIT 1970 FLEX SIG 1970 GLUCOSE 1970 sDNA (Cologuard) 1970 HIV SCREENING 1985 HEPATITIS C SCREENING 1988 HEPATITIS B IMMUNIZATION (1 of 3 - 19+ 3-dose series) 1989 LIPID 2010 YEARLY PREVENTIVE VISIT 02/18/2023 02/19/20, 02/18/2022, 05/16/2021, Additional history exists PHQ-2 (once per calendar year) 2023 COVID-19 Vaccine ( season) 2024 09/17/2023, 09/14/2022, 10/08/2021, Additional history exists INFLUENZA VACCINE (#1) 2024 3, 08/27/2022, 08/28/2021, Additional history exists MAMMO SCREENING 01/24/2026 01/25/2024, 03/0 07/2023, 11/19/2021, Additional history exists HPV TEST 02/21/2028 02/20/2023 PAP 02/21/2028 02/20/2023 DTAP/TDAP/TD IMMUNIZATION (2 - Td or Tdap) 02/22/2029 02/22/2019 COLONOSCOPY 08/01/2031 08/01/2021, 08/01/2021 COLORECTAL CANCER SCREENING 08/01/2031 RSV VACCINE (1 - 1-dose 75+ series) 2045 ZOSTER IMMUNIZATION Completed 08/22/2021, HPV IMMUNIZATION Aged Out No longer e ligible based on patient's age to complete this topic MENINGITIS IMMUNIZATION Aged Out No l onger eligible based on patient's age to complete this topic Pneumococcal Vaccine: Pediatrics (0 to 5 Years) and At-Risk Patients (6 to 64 Years) Aged Out No longer eligible based on patient's age to complete this topic RSV MONOCLONAL ANTIBODY Aged Out No l onger eligible based on patient's age to complete this topic Procedures Procedure Name Priority Date/Time Associated Diagnosis [...] component of this testing was completed at [facility] 02/25/2023 8:23 AM CDT [facility] Brushing ENDOCERVICAL STRUCTURE / Unknown Non-blood Collection / Unknown 02/20/2023 2:19 PM CDT 02/20/2023 9:08 PM CDT us Lisa Ferrera APRN CAMERA OPERATOR LAB - BEHIRAL AP F inal Result [facility] Specialty Lab [address] [facility] [address] [facility], [address] [address], [facility] [phone] * HPV High Risk Types DNA Cervical [...] 7:26 AM CDT us Lisa Ferrera APRN CAMERA OPERATOR LAB - BLOOD ORDER RENUKA Final Result [facility] [address] [facility] [address], [address] [place] [address], [facility] [phone] from Last 3 Months or Most Recently Relevant to Health Maintenance Insurance BCBS OUT OF STATE BCBS OUT OF STATE Care Teams Graphics Specialist Relationship Specialty Start Date End Date Margaret Osman MD [facility] [address] [place] [address] PCP - General Family Practice 08/19/17
--- OUTSIDE RECORDS SUMMARY | 2024-10-09 14:21 | XMS_ITS | Data Portability ---
Author Organization AJITH Pablo FRESH FOODS TECHNICIAN, [id number] Address [address] [place] [address] Assessment Encounter Date Assessment Date Assessment LastModified by Organization Details LastModified Time 02/28/2022 02/28/2022 I spent a total of 20 minutes providing care for this patient including: preparing to see the patient, obtaining a medical history, completing a medically appropriate physical exam, completing documentation of visit information and plans in the EMR, counseling the patient and/or caregiver regarding her diagnosis, treatment options and follow up plans, as well as any necessary communication of subsequent test results to the patient [email or web address] Not available 02/28/2022 17:48:46 Plan of Treatment Reminders Order Date Submit Date Provider Last Modified By Organization Details Last Modified Time Details Appointments None recorded. Lab hemoglobin (Hb), fingerstick , blood 2020 021 [email or web address] [facility] , [address] [place] [address], [address], [place], [address], 1 09:47:21 Pap test, slide(s), cervical 2022 023 [facility], [address] [place] [address], [address], [place], [address], 3 14:29:26 Referral None recorded. Procedures None recorded. Surgeries None recorded. Imaging None recorded. Medication Orders None recorded. Patient TargetsNo targets recorded. Patient Instructions Encounter Date Encounter Id Patient Instructions Last Modified By Organization Details Last Modified Time 01/17/2021 [id number] - Encouraged breast self-awareness and monthly breast exams. - Recommend mammogram annually starting at age 40. - Encouraged regular exercise. - Discussed calcium, vitamin D, and weight bearing exercise for bone health. - Recommend colonoscopy starting at age 50. - Encouraged patient to establish care with a PCP to manage non-BREADMAN concerns if she does not already have one. - Reviewed current cervical cancer screening guidelines. - Discussed common perimenopausal changes including vaginal dryness, hot flashes, night sweats, mood changes, and weight changes. Discussed when treatment is needed. - May have IUD removed/replaced next year if desires. DOES NOT want to get her period back. - Shingrix vaccine discussed. Encouraged to call pharmacy to see if they have it and may get it - Has annual exam w/ PCP in March. - Wants neon technician in [facility] or [place]. Discussed [facility] clinic. Can call to schedule there, if needs referral, happy to write for it or can wait until she sees her PCP if that is easier. [email or web address] Not available 01/18/2021 10:24:59 02/18/[id number] - Recommend 3D mammogram annually starting at age 40. - Encouraged regular exercise. - Recommend screening colonoscopy starting at age 45. - PCP to manage non-BREADMAN concerns Reviewed current cervical cancer screening guidelines- due next year - Discussed common perimenopausal changes including vaginal dryness, hot flashes, night sweats, mood changes, and weight changes. Discussed when treatment is needed. -discussed Mirena now approved for 7 years for contraception but still 5 yrs for menorrhagia, given that she will likely be transitioning to menopause soon, can observe menstrual bleeding and replace only if becomes heavy again; very possible current device will get her through menopause Not available 02/18/2022 17:49:53 02/28/2022 -No distinct masses palpable, diffuse prominent glandular tissue bilaterally, L>R -last mammogram was Nov 2021 and was normal, dense tissue noted; this is reassuring -Discussed with patient it is likely she is still cyclic and that the breast symptoms are secondary to hormonal changes -Reviewed anatomy of breast tissue -Offered expectant management -monitor size and mobility of lump; if it does not resolve within the next few weeks, contact clinic for imaging, pt agrees with plan [email or web address] Not available 02/28/2022 17:48:53 02/20/2023 [id number] - Encouraged breast self-awareness and monthly breast exams. - Recommend mammogram annually starting at age 40. - Encouraged regular exercise. - Discussed calcium, vitamin D, and weight bearing exercise for bone health. - Recommend colonoscopy starting at age 45. - PCP to manage non-BREADMAN concerns - Reviewed current cervical cancer screening guidelines. - Discussed common perimenopausal changes including vaginal dryness, hot flashes, night sweats, mood changes, and weight changes. Discussed when treatment is needed. [email or web address] Not available 02/20/2023 15:03:44 03/08/2024 [id number] - Encouraged breast self-awareness and mammograms annually - Encouraged regular exercise. - Discussed calcium, vitamin D, and weight bearing exercise for bone health. - PCP to manage non-BREADMAN concerns, derm for regular skin checks - Reviewed current cervical cancer screening guidelines. - Discussed common perimenopausal changes including vaginal dryness, hot flashes, night sweats, mood changes, and weight changes. Discussed when treatment is needed. Currently asymptomatic. -IUD expires Aug 2025, not using for contraception, had placed for heavy periods. Discussed that it can be hard to diagnose menopause when amenorrheic with LNG IUD. Plan to check FSH at next annual to guide decision making [email or web address] Not available 03/08/2024 17:35:25 Reason for Referral None Reported. Results Created Date Observation Date Name Description Value Unit Range Abnormal Flag Note LastModifiedBy Organization Detail LastModifiedTime 01/17/2021 hemog lobin (Hb), finge rstic k, blood fingerstick hemoglobin 14.3 g/dL 12.0-1 5.0 Not Available [email or web address] [facility] [address] [facility] [address], [place], [address], 01/17/2021 16:48:49 02/21/2002/20/2023 HPV HIGH RISK TYPES DNA CERVI ANNETTE other HR HPV Negati ve negati ve Not Available [address], [place], [address], 02/26/2023 14:29:39 02/21/2002/20/2023 HPV HIGH RISK TYPES DNA CERVI ANNETTE HPV16 DNA Negati ve negati ve Not Available [address], [place], [address], 02/26/2023 14:29:39 02/21/20 23 02/20/2023 HPV HIGH RISK TYPES DNA CERVI ANNETTE HPV18 DNA Negati ve negati ve Not Available [facility] [address] [facility] [address], [place], [address], 02/26/2023 14:29:39 02/21/20 23 02/20/2023 HPV HIGH RISK TYPES DNA CERVI ANNETTE final diagnosis See note below This patie nt's sampl e is negat tamia for HPV DNA. This test was devel oped and its perfo rmanc e yojana cteri stics deter mined by the [facility] . It has not been clear ed or appro nicholas by the FDA. The labor atory is regul ated under CLIA as quali fied to perfo rm high- compl exity testi ng. This test is used for clini annette purpo ses. It shoul d not be regar ded as inves tigat ional or for resea rch. METHO DOLOG Y: The Kayla Sharri 4800 syste m uses autom ated extra ction , simul taneo us ampli ficat ion of HPV (L1 regio n) and beta- globi n, follo wed by real time detec tion of fluor escen t label ed HPV and beta globi n using speci fic oligo nucle otide probe s. The test speci fical ly ident ifies types HPV 16 DNA and HPV 18 DNA while concu rrent ly detec ting the rest of the high risk types (31, 33, 35, 39, 45, 51, 52, 56, 58, 59, 66 or 68). COMME NTS: This test is not inten ded for use as a scree leann devic e for woman under age 30 with khadar l cervi annette cytol ogy. Resul ts shoul d be corre lated with cytol ogic and histo logic findi ngs. Close clini annette desi calip is recom martha barakat. Not Available [address], [place], [address], 02/26/2023 14:29:39 11/19/19 22 11/19/2021 MAMMO , scree leann, bilat eral No observ ation record ed. [email or web address] [facility] [address] [facility], [place], [address], 11/19/2021 12:59:53 01/23/20 23 01/22/2023 MAMMO , scree leann, tomos ynthe sis, bilat eral, w/ CAD No observ ation record ed. [email or web address] [facility] [address] [facility], [place], [address], 01/22/2023 16:23:12 01/25/20 24 01/25/2024 MAMMO , scree leann, tomos ynthe sis, bilat eral, w/ CAD No observ ation record ed. [facility] [address] [facility], [place], [address], 01/26/2024 14:53:03 Result Notes None recorded. Problems No Known Problems Procedures Surgical History Date Name Laterality Status Provider Name and Address Organization Details Recorded Time 01/25/20 24 Date of Last Mammogram completed CHANG FARMER NINFA- [id number] [facility],[address], [place], [address], [facility] FRESH FOODS TECHNICIAN 01/26/2024 14:52:39 02/21/20 23 Date of Last Pap Smear completed Micheline CANSECO - [facility] FR[employer] FOODS TECHNICIAN 02/26/2023 14:32:03 laparoscopic myomectomy completed Not Available [facility] 06/25/2020 01:05:16 Insert intrauterine device completed Not Available [facility] 06/25/2020 01:05:16 ligation of bilateral fallopian tubes completed Not Available [facility] 06/25/2020 01:05:16 tooth extraction completed Not Available [facility] 06/25/2020 01:05:16 loop electrosurgical excision procedure completed Not Available [facility] 06/25/2020 01:05:16 Imaging Results Imaging Date Name Status LastModified by Organiz ation Details LastModified Time 11/19/2021 MAMMO, screening, bilateral completed [facility] [address] [place], [address], 11/19/2021 12:59:53 01/22/2023 MAMMO, screening, tomosynthesis, bilateral, w/ CAD [facility] [address] [place], [address], 01/22/2023 16:23:12 01/25/2024 MAMMO, screening, tomosynthesis, bilateral, w/ CAD completed [email or web address] [facility] [address] [place], [address], 01/26/2024 14:53:03 Procedure Notes None recorded. Medical Equipment None Reported. Allergies Allergen ID Allergen Name Allergen Category Reaction Reaction Severity Criticality Documentation Date Start Date Code Code System Note Provider Name and Address Organization Details Recorded Time 467482 Medicinal product containin g penicilli n and acting as antibacte rial agent (product) medicatio n Not available Not available Not available 06/22/2020 60822 05 SNOMED *Note : 11/04 - unkno wn Not Available [facility] 0 16:57:00 Medications Name Sig Start Date Stop Date Status Note LastModified by Organization Details LastModified Time Mirena 21 mcg/24 hr (up to 8 years) 52 mg intrauterine device Take by intrauterin e route. active Not Available Not Available No t Available spironolacto ne 100 mg tablet TAKE 1 TABLET BY MOUTH EVERY DAY active Not Available Not Available No t Available betamethason e, augmented 0.05 % topical cream APPLY TO THE LEGS AND CHEST TWICE DAILY FOR 1-2 WEEKS THEN NEEDED FOR ITCHING FLARES active Not Available Not Available No t Available clindamycin 1 % topical gel APPLY TOPICALLY TWICE A DAY active Not Available Not Available Not Available fluticasone propionate 50 mcg/actuatio n nasal spray,suspen armando SPRAY 2 SPRAYS INTO EACH NOSTRIL EVERY DAY active Not Available Not Available No t Available Vitals Date Recorded Body height Body mass index (BMI) Body weight Systolic blood pressure Diastolic blood pressure Provider Name and Address Organization Details Last Updated DateTime 02/18/2022 176.53 cm 30.8 kg/m2 22535.43 g 118 mm[Hg] 78 mm[Hg] Maria Alejandra Pablo FRESH FOODS TECHNICIAN 2 16:49:15 Date Recorded Body height Systolic blood pressure Diastolic blood pressure Provider Name and Address Organization Details Last Updated DateTime 02/28/2022 176.53 cm 118 mm[Hg] 76 mm[Hg] Maria Alejandra Pablo FRESH FOODS TECHNICIAN 02/28/2022 16:17:44 Date Recorded Body height Body mass index (BMI) Body weight Systolic blood pressure Diastolic blood pressure Provider Name and Address Organization Details Last Updated DateTime 02/20/2023 176.53 cm 30.3 kg/m2 54241.21 g 115 mm[Hg] 70 mm[Hg] Kimberlydinorah Clarka (TERMED) AJITH FRESH FOODS TECHNICIAN 3 14:04:35 Date Recorded Body weight Body mass index (BMI) Body height Systolic blood pressure Diastolic blood pressure Provider Name and Address Organization Details Last Updated DateTime 03/08/2024 62850.77 g 31.1 kg/m2 176.53 cm 100 mm[Hg] 70 mm[Hg] [facility] FRESH FOODS TECHNICIAN 4 16:23:43 Date Recorded Body weight Body mass index (BMI) Body height Systolic blood pressure Diastolic blood pressure Provider Name and Address Organization Details Last Updated DateTime 01/17/2021 44786.31 g 30 kg/m2 176.53 cm 114 mm[Hg] 72 mm[Hg] Maria Alejandra Pablo FRESH FOODS TECHNICIAN 1 16:48:17 Social History Question Answer Notes LastModified by Organizat ion Details LastModified Time Tobacco Smoking Status Former Smoker Age Start/Stop: AJITH Day FRESH FOODS TECHNICIAN 01/17/2021 08:22:05 What Is Your Level Of Alcohol Consumption? Occasional 3-5dr/wk Information not available 01/17/2021 What Is Your Level Of Caffeine Consumption? Moderate 1c/day Information not available 02/20/2023 Which Illicit Or Recreational Drugs Have You Used? 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 Information not available 02/28/2022 How Much Tobacco Do You Smoke? 0.5 PPD Information not available 01/17/2021 Do You Use Any Illicit Or Recreational Drugs? No Information not available 02/28/2022 Sex: Unknown Functional Status Question Answer Note LastModified by Organizat ion Details LastModified Time What is your exercise level? Moderate Moderate Amount of Exercise (1-3 times weekly) *Note: 3 times a week walk and strength training Information not available 06/25/2020 Mental Status None recorded. Family History Relationship Description Onset Age of this Age Resolved Age Notes LastModified by Organization Details LastModified Time Paternal Aunt Malignant tumor of breast [email or web address] Not available 2020 16:54:03 Father Type 2 diabetes mellitus [email or web address] Not available 2023 16:19:44 Father Hypercholest erolemia [email or web address] Not available 2020 16:54:36 Father Atrial fibrillation [email or web address] Not available 16:19:44 Mother Cardiac pacemaker in situ [email or web address] Not available 2023 16:19:44 Medical History Condition Response Dermatology-Acne Cardiology- High Cholesterol Gynecological History Statement/Question Response Current Control Method Tubal Ligat ion History of Abnormal PAP Y Date of Last Pap Smear 02/20/2023 Date of Last Mammogram 01/25/2024 Date of LMP 02/14/2022 Obstetrics History GPAL:G 2 P 2 0 0 2 Type Value Multiple Births 0 Full Term 2 Induced 0 Spontaneous 0 Premature 0 Living 2 Ectopics 0 Total 2 Immunizations Vaccine Type Date Status Provider Name and Address Organization Details Recorded Time Influenza, split virus, quadrivalent, preservative 08/05/2017 completed Lexi Leidner null, [place] [facility] [employer] FO[employer]S TECHNICIAN 03/08/2024 16:20:38 Influenza, split virus, quadrivalent, preservative 08/12/2016 completed Lexi Leidner null, [place] [facility] [employer] FO[employer] TECHNICIAN 03/08/2024 16:20:38 Influenza, split virus, quadrivalent, preservative 08/29/2020 completed Lexi Leidner null, [place] [facility] [employer] FOOD[employer] TECHNICIAN 03/08/2024 16:20:38 Influenza, MDCK, quadrivalent, preservative 08/27/2022 completed Lexi Leidner null, [place] [facility] [employer] FO[employer] TECHNICIAN 03/08/2024 16:20:38 Influenza, MDCK, quadrivalent, preservative 08/28/2021 completed Lexi Leidner null, [place] [facility] [employer] FOODS TECHNICIAN 03/08/2024 16:20:38 zoster recombinant 05/16/2021 completed Lexi Lei dner null, [place] [facility] [employer] TECHNICIAN 03/08/2024 16:20:38 zoster recombinant 08/22/2021 completed Lexi Lei dner null, [place] [facility] [employer]S TECHNICIAN 03/08/2024 16:20:38 COVID-19, mRNA, LNP-S, PF, 30 mcg/0.3 mL dose 02/26/2021 completed Lexi Leidner null, [place] [facility] [employer] FO[employer] TECHNICIAN 03/08/2024 16:20:38 COVID-19, mRNA, LNP-S, PF, 30 mcg/0.3 mL dose 03/19/2021 completed Lexi Leidner null, [place] [facility] [employer] TECHNICIAN 03/08/2024 16:20:38 COVID-19, mRNA, LNP-S, PF, 30 mcg/0.3 mL dose 10/08/2021 completed Lexi Leidner null, [place] [facility] [employer] FOODS TECHNICIAN 03/08/2024 16:20:38 COVID-19, mRNA, LNP-S, bivalent, PF, 30 mcg/0.3 mL dose 09/14/2022 completed Lexi Moidner null, [place] [facility] [employer] FOODS TECHNICIAN 03/08/2024 16:20:38 Tdap 02/22/2019 completed [facility]ner null, [place] [facility] FR[facility] FOODS TECHNICIAN 03/08/2024 16:20:38 Novel [id number], all formulations 11/20/2009 completed Lexi Leidner null, [place] [facility] FRESH FOODS TECHNICIAN 03/08/2024 16:20:38 Influenza, split virus, trivalent, preservative 08/11/2012 completed Lexi Leidner null, [place] [facility] FRESH FOODS TECHNICIAN 03/08/2024 16:20:38 Influenza, split virus, trivalent, preservative 08/20/2011 completed Lexi Moidner null, [place] FRESH FOODS TECHNICIAN 03/08/2024 16:20:38 Influenza, split virus, trivalent, preservative 09/12/2003 completed Lexi Leidner null, [place] [facility] [employer] FOODS TECHNICIAN 03/08/2024 16:20:38 Influenza, split virus, quadrivalent, PF 07/28/2013 completed Lexi Moidner null, [place] [facility] FRESH FOODS TECHNICIAN 03/08/2024 16:20:38 Influenza, split virus, quadrivalent, PF 08/31/2019 completed Lexi Moidner null, [place] [facility] FRESH FOODS TECHNICIAN 03/08/2024 16:20:38 Past Encounters Encounter ID Performer Location Encounter Start Date Encounter Closed Date Diagnosis/Indication Diagnosis SNOMED-CT Code Diagnosis ICD10 Code [id number] ROSA HARVEY [id number] D[place]_[address] ,[address] AJITH JOYCE [address] 01/17/2021 16:38:01 01/17/2021 17:40:42 Gynecologic examination 62232002 Z01.419 Body mass index 30+ - obesity 612421111 Z68.30 [id number] CHANG FARMER, ROSA- [id number] THD[place]_[facility] [address] [facility] ,[address] [place] [address] 02/18/2022 16:37:09 02/18/2022 17:51:17 Gynecologic examination 77455463 Z01.400 [id number] CHANG FARMER [facility] [facility] ,[address] [place] [address] 02/28/2022 16:11:48 02/28/2022 17:50:09 Fibrocystic change of left breast 3674075356 0377134 N60.12 [id number] CHANG FARMER [facility] [facility] ,[address] [place] [address] 02/20/2023 13:53:05 02/20/2023 15:06:14 Gynecologic examination 05006091 Z01.118 [id number] CHANG FARMER [facility] [facility] ,[address] [place] [address] 03/08/2024 16:18:44 03/08/2024 17:57:35 Gynecologic examination 94981550 Z01.419 Health Concerns Section Related Observation LastModified by Organization Detai ls LastModified Time None Recorded Concern Status LastModified by Organization Details LastModified Time None Recorded Advance Directives Directive None Recorded Payers Encounter Date Sequence Insurance Name Policy Number Policy Price Covered Member ID Price Member ID Guarantor Name 01/17/2021 1 [place] [id number] Carmen L Nila [id number] Carmen Rah Nila 02/18/2022 1 [place] [id number] Carmen L Nila [id number] Carmen Rah Nila 02/28/2022 1 [place] [id number] Carmen L Nila [id number] Carmen Rah Nila 02/20/2023 1 [place] [id number] Carmen L Nila [id number] Carmen Monreal Nila 03/08/2024 1 [place] [id number] Carmen Krishnamurthyb [id number] Carmen Monreal Nila Notes Date Note Type Note Provider Name and Address Organization Details Recorded Time 01/17/2021 text/html Annual Premenopa usal ([facility])Reported bypatient.Patient Relationship To Practice:established patient Current Medical History:no active medical problems Relevant Family History:no family history of breast cancer; no family history of ovarian cancer; no family history of uterine cancer; no family history of colon cancer; no family history of blood clots/DVT Menstrual History:Frequency of Menses: rare Contraceptive Method:Current Method Used: levonorgestrel containing IUD--5 year; satisfied; and bilateral salpingectomy Sexually Active:Yes: spouse STI Screen:declines Health/Prevention:Ex ercise: yes; Vitamin D: yes; Adequate Calcium Intake: yes Mammogram:up-to-date ; 11/14/2020 Pap Smear +/- HPV Cotesting:up-to-date ; 09/29/2018 Thyroid/Lipid Screening:up-to-date ; does with primary care Colonoscopy:due Patient has:Primary Care Physician: yes; Vacuum Tank Tender: yes Overall feeling great this year, questions about shingles vaccine and colonoscopy. Walks for exercise, less in winter given weather and road conditions. Feels like her diet could be improved. Occasionally has brown spotting that she considers to be her period. No complaints other than excess discharge but she has always had this. Denies itching, odor and other vaginitis complaints. HELENA GREER, NINFA [id number] [facility],[address], [place], [address], [place] [facility] FRESH FOODS TECHNICIAN 01/18/2021 10:29:43 02/18/2022 text/html Annual Premenopa usal ([facility])Reported bypatient.Patient Relationship To Practice:established patient Current Medical History:no active medical problems Relevant Family History:no family history of breast cancer; no family history of ovarian cancer; no family history of uterine cancer; no family history of colon cancer; no family history of blood clots/DVT Menstrual History:Frequency of Menses: rare Contraceptive Method:satisfied: Mirena; and bilateral salpingectomy Sexually Active:Yes: spouse STI Screen:declines Health/Prevention:Ex ercise: yes; Safe at home: yes; Urinary Incontinence: no Mammogram:up-to-date ; 11/19/2021 Pap Smear +/- HPV Cotesting:up-to-date ; 09/29/2018 Thyroid/Lipid Screening:up-to-date ; does with primary care Colonoscopy:up-to-da te Patient has:Primary Care Physician: yes; Vacuum Tank Tender: yes Overall things are going well. Completed mammogram and colonoscopy in the last 6 months. Has to get a colonoscopy every 3 years as of right now due to presence of adenomatous polyps. Two children - 22 year old son is working in [employer]; 18 year old daughter is joining the [employer] and hopes to become a PA. IUD placed August of 2017 - has tremendously helped her menstrual cycles. Has several months of amenorrhea, otherwise occasional spotting. Patient will let us know if menses return as she would like to remain amenorrheic until menopause. Denies vaginal dryness, itching, odor and other vaginitis complaints. PCP is Dr. Osman in [place]. Gets chol/glucose there. GAVINO KENNEDY [id number] [facility],[address], [place], [address], [facility] FRESH FOODS TECHNICIAN 02/18/2022 17:50:22 02/28/2022 text/html Carmen presents t viraj with new onset of a left breast lump. Thursday night (4 days ago) she noticed the lateral side of her left breast was tender. Upon palpating her breasts, she felt a mobile lump in the area of tenderness. It has not changed in size since. Denies erythema or warmth of skin surrounding the lump. She is amenorrheic secondary to her IUD, so is unsure if this is technically around the time of her menses. Was in the clinic 02/18/2022 for a clinic and no abnormal breast findings noted at that time. No history of breast lumps. History of uterine fibroids. Most recent mammogram was November of 2021 which showed dense breast tissue. GAVINO KENNEDY [id number] [facility],[address], [place], [address], [place] - [employer] 02/28/2022 17:49:06 02/20/2023 text/html Annual Premenopa usal ([facility])Reported bypatient.Patient Relationship To Practice:established patient Current Medical History:no active medical problems Relevant Family History:no family history of breast cancer; no family history of ovarian cancer; no family history of uterine cancer; no family history of colon cancer; no family history of blood clots/DVT Menstrual History:Frequency of Menses: rare Contraceptive Method:satisfied: sterilization Sexually Active:Yes: STI Screen:declines Health/Prevention:Ex ercise: yes; Safe at home: yes; Urinary Incontinence: no Mammogram:up-to-date ; 01-22-2023 Pap Smear +/- HPV Cotesting:due Thyroid/Lipid Screening:up-to-date ; does with primary care Colonoscopy:up-to-da te Patient has:Primary Care Physician: yes; Vacuum Tank Tender: yes Two children - 23 year old son moved back in, is working in [employer] and road construction; 19 year old daughter is in the [employer] and hopes to become a PA, currently working in a hospital ED in [place]. IUD placed August of 2017 - has tremendously helped her menstrual cycles. This past year has had some return of spotting, but not horrible periods like before. Denies vaginal dryness, itching, odor and other vaginitis complaints. PCP is Dr. Osman in [place]. Gets chol/glucose there.New boyfriend for about 1 year- going well! 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[facility],[address], [place], [address], [facility] - [employer] 02/20/2023 15:04:33 03/08/2024 text/html Annual Premenopa usal ([facility])Reported bypatient.Patient Relationship To Practice:established patient Current Medical History:no active medical problems Relevant Family History:family history of colon cancer; no family history of breast cancer; no family history of ovarian cancer; no family history of uterine cancer; no family history of blood clots/DVT; Aunt had colon CA Menstrual History:Frequency of Menses: rare Contraceptive Method:satisfied: sterilization Sexually Active:Yes: STI Screen:declines Health/Prevention:Ex ercise: yes; Multivitamins: yes; Vitamin D: ; Adequate Calcium Intake: ; Safe at home: yes; Urinary Incontinence: no Mammogram:up-to-date ; Pap Smear +/- HPV Cotesting:up-to-date Thyroid/Lipid Screening:up-to-date ; does with primary care Colonoscopy:up-to-da te Patient has:Primary Care Physician: yes; Vacuum Tank Tender: yesNotes:IUD placed August of 2017 - has tremendously helped her menstrual cycles. This past year has had some return of spotting, but not horrible periods like before. Denies night sweats or hot flashes. Denies vaginal dryness, itching, odor and other vaginitis complaints. Diet and exercise: easier to get out now that it is sunnier and weather being nice. Diet is getting better, son moved out and is working on sticking with salads and making good choices as far as not having junk around. Goal to lose 15 pounds. [address] Osman in [place]. Gets chol/glucose there.Up to date on mammo and colonoscopy. Works in [employer], [employer]. New boyfriend for about 1 year- going well! Declines STI testing. Kids are doing well - 24 year old son moved out, bought a house, is working in welding and road construction; 20 year old daughter (Krystal) moved back to [place], is in the [employer]. Aunt moved into memory care today. She is the POA for her. CHANG FARMER, [facility] [id number] [facility],[address], [place], [address], [place] - [employer] 03/08/2024 17:36:17 OBGyn Episode Ob Episode Information Episode Created Date Number of Fetuses Patient Bloodtype Patient rh Status Prepregnancy Weight lbs Domestic Partner Domestic Partner Phone Father Name Rehabilitation Medicine Physician Status 01/18/20 21 1 CLOSED Fetus Data First Name Last Name Admitted to NICU Weight (g) Sex Living Outcome Pediatric Complications Fetus ID Race Codes Race Delivery Type 2834.95 M Full Term [id number] [place] Calculation Initial [place] Date Initial Exam Date Initial Exam Provider Initial Ultrasound Date Last Menstrual Period Date Ultra Sound Weeks Gestation 0 Eighteen To Twenty Week [place] Update Ultra Sound Date Fundal Height At Umbil Quickening Date Ultra Sound Latest Weeks Gestation Final [place] Confirmed By Final [place] Confirmed Date Final [place] Date Ultra Sound Latest Days Gestation 0 0 Menstrual History Last Menstrual Date Menses Monthly On Bcp Conception Prior Menses Frequency Hcg Plus Date Menarche Onset Age Delivery Information Delivery Date Delivery Type Labor Anesthesia Weeks Gestation Incision Type Labor Labor Length Hrs Delivered By Post Complications Tubal Sterilization Discharge Date Comments [address] Logan more Discharge Information Feeding Method Contraceptive Method Maternal HG B and HCT Levels Ob Episode Information Episode Created Date Number of Fetuses Patient Bloodtype Patient rh Status Prepregnancy Weight lbs Domestic Partner Domestic Partner Phone Father Name Rehabilitation Medicine Physician Status 01/18/20 21 1 CLOSED Fetus Data First Name Last Name Admitted to NICU Weight (g) Sex Living Outcome Pediatric Complications Fetus ID Race Codes Race Delivery Type 3005.04 7 F Full Term [id number] [place] Calculation Initial [place] Date Initial Exam Date Initial Exam Provider Initial Ultrasound Date Last Menstrual Period Date Ultra Sound Weeks Gestation 0 Eighteen To Twenty Week [place] Update Ultra Sound Date Fundal Height At Umbil Quickening Date Ultra Sound Latest Weeks Gestation Final [place] Confirmed By Final [place] Confirmed Date Final [place] Date Ultra Sound Latest Days Gestation 0 0 Menstrual History Last Menstrual Date Menses Monthly On Bcp Conception Prior Menses Frequency Hcg Plus Date Menarche Onset Age Delivery Information Delivery Date Delivery Type Labor Anesthesia Weeks Gestation Incision Type Labor Labor Length Hrs Delivered By Post Complications Tubal Sterilization Discharge Date Comments 3 40 2 Discharge Information Feeding Method Contraceptive Method Maternal HG B and HCT Levels
== END 2024-10-07 07:42 | disposition home or self-care (01) ==
LOC: NFLDREF 10-09 14:19
PROVIDERS: PCP Family Medicine; Referring Provider Family Medicine; Visit Provider Family Medicine
DX: Z00.00 Encounter for general adult medical examination without abnormal findings (principal); E78.5 Hyperlipidemia, unspecified; E66.9 Obesity, unspecified; Z79.899 Other long term (current) drug therapy
CPT/HCPCS: 80053; 80061

== ENCOUNTER 2025-10-10 07:24 | Outpatient (CLI) | payer BC, SELFPAY | END 2025-10-10 07:25 | disposition home or self-care (01) | LOC: NFLDREF 10-14 18:19 | PROVIDERS: PCP Family Medicine; Referring Provider Family Medicine; Visit Provider Family Medicine | DX: E78.5 Hyperlipidemia, unspecified (principal) | CPT/HCPCS: 80053; 80061 ==